=== PATIENT | female | born 1935 | race Caucasian/White ===

== ENCOUNTER 2016-09-17 15:08 | Inpatient (IN) | payer MEDICARE, OTHER ==
[~2016-09-17] VITALS: Ht 160 cm; Wt 82.4 kg
[~2016-09-17 15:08] MED LIST: ALDACTONE25 MG PO; ASPIRIN CHEWABL81 MG PO; BUMEX 1MG TABLET1 MG PO; CEFTIN500 MG PO; CHLORASEPTIC LOZ PO; CLOTRIMAZOLE10 MG TP; CORDARONE 200M200 MG PO; COUMADIN1 MG PO; EXCEDRIN EXTRA1 EACH PO; FUROSEMIDE40 MG PO; KLONOPIN TAB 00.5 MG PO; LANTUS100 UNIT/1 SQ; LASIX20 MG PO; LISINOPRIL1 GM PO; LOPRESSOR 50 MG50 MG PO; LOPRESSOR50 MG PO; METOLAZONE5 MG PO; NITROSTAT0.3 MG PO; NOVOLOG100 UNIT/1 SQ; OMEPRAZOLE20 MG PO; OXYGEN; SYNTHROID100 MCG PO; THERAGRAN-M PR1 EACH PO
[2016-09-17 18:16] LABS: HEMOGLOBIN 12.3 gm/dl (12.3-15.3); RED BLOOD COUNT 4.14 M/UL (4.00-5.10); WHITE BLOOD COUNT 15.9 K/UL (4.5-11.0)
[2016-09-18] MEDS ORDERED: COUMADIN5 MG PO (01:12)
[2016-09-18] MEDS ORDERED: NORVASC 5 MG TAB5 MG PO (01:13)
[2016-09-18] MEDS ORDERED: NITRO-TIME2.5 MG PO (01:14)
[2016-09-18] MEDS ORDERED: METOLAZONE5 MG PO (01:15)
[2016-09-18] MEDS ORDERED: K-TAB ER10 MEQ PO (01:17)
[2016-09-19 05:27] LABS: HEMOGLOBIN 10.4 gm/dl (12.3-15.3); RED BLOOD COUNT 3.57 M/UL (4.00-5.10); WHITE BLOOD COUNT 10.9 K/UL (4.5-11.0)
[2016-09-21 05:35] LABS: HEMOGLOBIN 11.2 gm/dl (12.3-15.3); RED BLOOD COUNT 3.77 M/UL (4.00-5.10); WHITE BLOOD COUNT 10.1 K/UL (4.5-11.0)
[2016-09-23 05:24] LABS: RED BLOOD COUNT 3.06 M/UL (4.00-5.10); WHITE BLOOD COUNT 13.8 K/UL (4.5-11.0)
[2016-09-25 06:01] LABS: HEMOGLOBIN 9.1 gm/dl (12.3-15.3); RED BLOOD COUNT 3.16 M/UL (4.00-5.10); WHITE BLOOD COUNT 16.5 K/UL (4.5-11.0)
[2016-09-26 03:53] LABS: HEMOGLOBIN 8.2 gm/dl (12.3-15.3); WHITE BLOOD COUNT 15.7 K/UL (4.5-11.0)
[2016-09-26 04:01] LABS: RED BLOOD COUNT 2.78 M/UL (4.00-5.10)
[2016-09-27 04:57] LABS: HEMOGLOBIN 7.9 gm/dl (12.3-15.3); RED BLOOD COUNT 2.73 M/UL (4.00-5.10); WHITE BLOOD COUNT 15.6 K/UL (4.5-11.0)
[2016-09-28 05:15] LABS: RED BLOOD COUNT 2.74 M/UL (4.00-5.10); WHITE BLOOD COUNT 13.7 K/UL (4.5-11.0)
[2016-09-29 06:32] LABS: RED BLOOD COUNT 2.75 M/UL (4.00-5.10); WHITE BLOOD COUNT 11.6 K/UL (4.5-11.0)
[2016-09-30 04:23] LABS: HEMOGLOBIN 8.1 gm/dl (12.3-15.3); RED BLOOD COUNT 2.8 M/UL (4.00-5.10); WHITE BLOOD COUNT 11.5 K/UL (4.5-11.0)
[2016-10-01 04:30] LABS: HEMOGLOBIN 8.1 gm/dl (12.3-15.3); RED BLOOD COUNT 2.78 M/UL (4.00-5.10)
[2016-10-02 04:16] LABS: HEMOGLOBIN 8.5 gm/dl (12.3-15.3); RED BLOOD COUNT 2.92 M/UL (4.00-5.10); WHITE BLOOD COUNT 13.4 K/UL (4.5-11.0)
[2016-10-03 13:07] LABS: HEMOGLOBIN 8.8 gm/dl (12.3-15.3); RED BLOOD COUNT 3.01 M/UL (4.00-5.10); WHITE BLOOD COUNT 12.1 K/UL (4.5-11.0)
[2016-10-04 04:46] LABS: RED BLOOD COUNT 3.08 M/UL (4.00-5.10); WHITE BLOOD COUNT 10.4 K/UL (4.5-11.0)
[2016-10-05 05:42] LABS: HEMOGLOBIN 9.2 gm/dl (12.3-15.3); RED BLOOD COUNT 3.15 M/UL (4.00-5.10)
[2016-10-06 05:49] LABS: HEMOGLOBIN 9.5 gm/dl (12.3-15.3); RED BLOOD COUNT 3.29 M/UL (4.00-5.10); WHITE BLOOD COUNT 10.4 K/UL (4.5-11.0)
[2016-10-07 06:22] LABS: RED BLOOD COUNT 3.11 M/UL (4.00-5.10)
[2016-10-07 06:23] LABS: WHITE BLOOD COUNT 15.7 K/UL (4.5-11.0)
[2016-10-08 05:55] LABS: HEMOGLOBIN 9.1 gm/dl (12.3-15.3); RED BLOOD COUNT 3.14 M/UL (4.00-5.10); WHITE BLOOD COUNT 12.5 K/UL (4.5-11.0)
[2016-10-09 06:31] LABS: HEMOGLOBIN 8.7 gm/dl (12.3-15.3); RED BLOOD COUNT 3.02 M/UL (4.00-5.10); WHITE BLOOD COUNT 12.4 K/UL (4.5-11.0)
== END 2016-10-09 16:06 | DRG 271 ==
LOC: ER1 15:08 → M/S 21:09 → ZEROF 21:09 → MED SURG 4 21:09 → M/S 09-18 00:52 → PROG CARE 09-25 14:53 → MED SURG 4 09-26 20:18
PROVIDERS: Emergency Medicine; Internal Medicine; Internal Medicine Cardiovascular Disease; Internal Medicine Infectious Disease; Internal Medicine Nephrology; Podiatrist Foot & Ankle Surgery; Student in an Organized Health Care Education/Training Program; ADMIT Internal Medicine
PROC: 0Y6Q0Z1 Detachment at Left 1st Toe, High, Open Approach (ICD-10-PCS; principal; 2016-09-20 15:00)
PROC: 0HBNXZZ Excision of Left Foot Skin, External Approach (ICD-10-PCS; principal; 2016-09-20 15:00)
PROC: 0YBM0ZZ Excision of Right Foot, Open Approach (ICD-10-PCS; principal; 2016-09-20 15:00)
PROC: 04CK3ZZ Extirpation of Matter from Right Femoral Artery, Percutaneous Approach (ICD-10-PCS; 2016-09-20 15:00)
PROC: 047M3ZZ Dilation of Right Popliteal Artery, Percutaneous Approach (ICD-10-PCS; 2016-09-20 15:00)
PROC: 047K3ZZ Dilation of Right Femoral Artery, Percutaneous Approach (ICD-10-PCS; 2016-09-20 15:00)
PROC: 047L3ZZ Dilation of Left Femoral Artery, Percutaneous Approach (ICD-10-PCS; 2016-09-25)
PROC: 047N3ZZ Dilation of Left Popliteal Artery, Percutaneous Approach (ICD-10-PCS; 2016-09-25)
PROC: B548ZZA Ultrasonography of Superior Vena Cava, Guidance (ICD-10-PCS; 2016-10-08)
PROC: 02HV33Z Insertion of Infusion Device into Superior Vena Cava, Percutaneous Approach (ICD-10-PCS; 2016-10-08)
DX: E11.52 Type 2 diabetes mellitus with diabetic peripheral angiopathy with gangrene (principal); I13.0 Hypertensive heart and chronic kidney disease with heart failure and stage 1 through stage 4 chronic kidney disease, or unspecified chronic kidney disease; I50.32 Chronic diastolic (congestive) heart failure; L76.34 Postprocedural seroma of skin and subcutaneous tissue following other procedure; L03.115 Cellulitis of right lower limb; E44.0 Moderate protein-calorie malnutrition; J44.1 Chronic obstructive pulmonary disease with (acute) exacerbation; J44.0 Chronic obstructive pulmonary disease with (acute) lower respiratory infection; J98.11 Atelectasis; N17.9 Acute kidney failure, unspecified; N18.4 Chronic kidney disease, stage 4 (severe); T41.45XA Adverse effect of unspecified anesthetic, initial encounter; R00.1 Bradycardia, unspecified; Y92.234 Operating room of hospital as the place of occurrence of the external cause; T45.515A Adverse effect of anticoagulants, initial encounter; J20.9 Acute bronchitis, unspecified; E11.621 Type 2 diabetes mellitus with foot ulcer; L97.521 Non-pressure chronic ulcer of other part of left foot limited to breakdown of skin; L89.312 Pressure ulcer of right buttock, stage 2; E11.649 Type 2 diabetes mellitus with hypoglycemia without coma; E11.65 Type 2 diabetes mellitus with hyperglycemia; E11.22 Type 2 diabetes mellitus with diabetic chronic kidney disease; Y92.239 Unspecified place in hospital as the place of occurrence of the external cause; E03.9 Hypothyroidism, unspecified; I25.10 Atherosclerotic heart disease of native coronary artery without angina pectoris; R06.00 Dyspnea, unspecified; Y92.230 Patient room in hospital as the place of occurrence of the external cause; Z95.1 Presence of aortocoronary bypass graft; L98.8 Other specified disorders of the skin and subcutaneous tissue; X58.XXXA Exposure to other specified factors, initial encounter; Y93.9 Activity, unspecified; Z79.02 Long term (current) use of antithrombotics/antiplatelets; Z79.4 Long term (current) use of insulin; Z79.899 Other long term (current) drug therapy; Z88.6 Allergy status to analgesic agent; Z88.8 Allergy status to other drugs, medicaments and biological substances; Z88.1 Allergy status to other antibiotic agents; I48.2 Chronic atrial fibrillation; Z79.01 Long term (current) use of anticoagulants
CPT/HCPCS: 36415; 71010; 73630; 73718; 74000; 75630; 75710; 78315; 80048; 80053; 80202; 82962; 83605; 83735; 84132; 84443; 85025; 85027; 85347; 85610; 85730; 86140; 87040; 87070; 87077; 87186; 87205; 89055; 93925; 94640; 94664; 96365; 97110; 97116; 97530; 97535; 99284; A9503; C1714; C1725; C1769; C1887; C2623; J0583; J0713; J1644; J1940; J2250; J2795; J2930; J3010; J3370; J3430; J7030; J7050; J7070; J7120; Q4133; Q9965

== ENCOUNTER 2016-10-18 18:58 | Inpatient (IN) | payer MEDICARE, OTHER ==
[~2016-10-18] VITALS: Ht 160 cm; Wt 90.7 kg
[~2016-10-18 18:58] MED LIST changes: +COUMADIN5 MG PO; +K-TAB ER10 MEQ PO; +NITRO-TIME2.5 MG PO; +NORVASC 5 MG TAB5 MG PO
[2016-10-18] MEDS ORDERED: LOPRESSOR 25 MG25 MG PO (23:33)
[2016-10-18] MEDS ORDERED: VENTOLIN/PROVE0.5 ML INH (23:36)
[2016-10-18] MEDS ORDERED: ASPIRIN EC81 MG PO (23:37)
[2016-10-18] MEDS ORDERED: DULERA 200 MCG8.8 GM INH (23:39)
[2016-10-18] MEDS ORDERED: CEFTAZIDIME1 GM IV (23:39)
[2016-10-18] MEDS ORDERED: IODINE TOP (23:42)
[2016-10-18] MEDS ORDERED: LIPITOR TAB 2020 MG PO (23:43)
[2016-10-18] MEDS ORDERED: IPRATROPIU0.2 MG/1 M INH (23:43)
[2016-10-18] MEDS ORDERED: NITROSTAT 0.40.4 MG SL (23:44)
[2016-10-18] MEDS ORDERED: BRILINTA 90 MG90 MG GT (23:45)
[2016-10-18] MEDS ORDERED: PHENERGAN 25 MG25 M1 PO (23:45)
[2016-10-18] MEDS ORDERED: VITAMIN C 500500 MG PO (23:46)
[2016-10-18] MEDS ORDERED: BRILINTA90 MG PO (23:46)
[2016-10-19 07:19] LABS: RED BLOOD COUNT 3.09 M/UL (4.00-5.10)
[2016-10-20 05:44] LABS: HEMOGLOBIN 8.7 gm/dl (12.3-15.3); RED BLOOD COUNT 3.08 M/UL (4.00-5.10)
[2016-10-20 05:49] LABS: WHITE BLOOD COUNT 5.4 K/UL (4.5-11.0)
[2016-10-21 05:35] LABS: HEMOGLOBIN 8.8 gm/dl (12.3-15.3); RED BLOOD COUNT 3.06 M/UL (4.00-5.10)
[2016-10-21 05:37] LABS: WHITE BLOOD COUNT 15.1 K/UL (4.5-11.0)
[2016-10-22 06:08] LABS: HEMOGLOBIN 8.7 gm/dl (12.3-15.3); RED BLOOD COUNT 3.04 M/UL (4.00-5.10); WHITE BLOOD COUNT 14.5 K/UL (4.5-11.0)
[2016-10-23 04:15] LABS: HEMOGLOBIN 8.8 gm/dl (12.3-15.3); RED BLOOD COUNT 3.07 M/UL (4.00-5.10)
[2016-10-24 04:58] LABS: HEMOGLOBIN 9.1 gm/dl (12.3-15.3); RED BLOOD COUNT 3.17 M/UL (4.00-5.10); WHITE BLOOD COUNT 10.7 K/UL (4.5-11.0)
[2016-10-24 17:17] LABS: URINE CREATININE 20.2 mg/dL
[2016-10-25 04:14] LABS: RED BLOOD COUNT 3.16 M/UL (4.00-5.10); WHITE BLOOD COUNT 9.9 K/UL (4.5-11.0)
[2016-10-26 03:40] LABS: HEMOGLOBIN 8.8 gm/dl (12.3-15.3); RED BLOOD COUNT 3.12 M/UL (4.00-5.10); WHITE BLOOD COUNT 9.1 K/UL (4.5-11.0)
[2016-10-27 04:23] LABS: HEMOGLOBIN 8.9 gm/dl (12.3-15.3); RED BLOOD COUNT 3.15 M/UL (4.00-5.10); WHITE BLOOD COUNT 9.9 K/UL (4.5-11.0)
[2016-10-28 04:07] LABS: HEMOGLOBIN 8.7 gm/dl (12.3-15.3); RED BLOOD COUNT 3.07 M/UL (4.00-5.10); WHITE BLOOD COUNT 10.9 K/UL (4.5-11.0)
[2016-10-29 04:23] LABS: HEMOGLOBIN 8.7 gm/dl (12.3-15.3); RED BLOOD COUNT 3.07 M/UL (4.00-5.10)
[2016-10-30 04:45] LABS: HEMOGLOBIN 8.8 gm/dl (12.3-15.3); RED BLOOD COUNT 3.14 M/UL (4.00-5.10); WHITE BLOOD COUNT 13.6 K/UL (4.5-11.0)
[2016-10-31 05:52] LABS: HEMOGLOBIN 8.5 gm/dl (12.3-15.3); RED BLOOD COUNT 3.01 M/UL (4.00-5.10); WHITE BLOOD COUNT 11.8 K/UL (4.5-11.0)
[2016-11-01 06:19] LABS: HEMOGLOBIN 8.8 gm/dl (12.3-15.3); RED BLOOD COUNT 3.12 M/UL (4.00-5.10)
[2016-11-02 05:55] LABS: HEMOGLOBIN 8.6 gm/dl (12.3-15.3); WHITE BLOOD COUNT 17.4 K/UL (4.5-11.0)
[2016-11-03 04:00] LABS: HEMOGLOBIN 8.7 gm/dl (12.3-15.3); RED BLOOD COUNT 3.09 M/UL (4.00-5.10); WHITE BLOOD COUNT 17.4 K/UL (4.5-11.0)
[2016-11-04 06:24] LABS: HEMOGLOBIN 8.7 gm/dl (12.3-15.3); RED BLOOD COUNT 3.08 M/UL (4.00-5.10); WHITE BLOOD COUNT 15.2 K/UL (4.5-11.0)
[2016-11-05 04:55] LABS: HEMOGLOBIN 7.5 gm/dl (12.3-15.3)
[2016-11-05 04:56] LABS: RED BLOOD COUNT 2.59 M/UL (4.00-5.10); WHITE BLOOD COUNT 19.1 K/UL (4.5-11.0)
[2016-11-06 06:24] LABS: HEMOGLOBIN 7.7 gm/dl (12.3-15.3); RED BLOOD COUNT 2.74 M/UL (4.00-5.10); WHITE BLOOD COUNT 18.7 K/UL (4.5-11.0)
[2016-11-07 06:40] LABS: HEMOGLOBIN 7.3 gm/dl (12.3-15.3); RED BLOOD COUNT 2.56 M/UL (4.00-5.10)
== END 2016-11-07 17:18 | DRG 239 ==
LOC: CCU 22:57 → MED SURG 4 22:57 → M/S 22:57 → CCU 10-22 13:08 → MED SURG 4 10-26 13:52
PROVIDERS: Hospitalist; Internal Medicine; Internal Medicine Nephrology; Orthopaedic Surgery; ADMIT Emergency Medicine
PROC: 0Y6H0Z2 Detachment at Right Lower Leg, Mid, Open Approach (ICD-10-PCS; principal; 2016-11-04 18:00)
PROC: 30233N1 Transfusion of Nonautologous Red Blood Cells into Peripheral Vein, Percutaneous Approach (ICD-10-PCS; 2016-11-07)
DX: I50.23 Acute on chronic systolic (congestive) heart failure (principal); J96.01 Acute respiratory failure with hypoxia; J96.02 Acute respiratory failure with hypercapnia; A41.9 Sepsis, unspecified organism; E11.52 Type 2 diabetes mellitus with diabetic peripheral angiopathy with gangrene; N18.4 Chronic kidney disease, stage 4 (severe); M86.671 Other chronic osteomyelitis, right ankle and foot; E87.3 Alkalosis; J98.11 Atelectasis; I13.2 Hypertensive heart and chronic kidney disease with heart failure and with stage 5 chronic kidney disease, or end stage renal disease; N18.5 Chronic kidney disease, stage 5; D62 Acute posthemorrhagic anemia; G72.81 Critical illness myopathy; I73.9 Peripheral vascular disease, unspecified; R04.0 Epistaxis; I50.32 Chronic diastolic (congestive) heart failure; E11.65 Type 2 diabetes mellitus with hyperglycemia; J44.9 Chronic obstructive pulmonary disease, unspecified; I48.91 Unspecified atrial fibrillation; I25.119 Atherosclerotic heart disease of native coronary artery with unspecified angina pectoris; D64.9 Anemia, unspecified; Z95.1 Presence of aortocoronary bypass graft; Z95.820 Peripheral vascular angioplasty status with implants and grafts; E11.22 Type 2 diabetes mellitus with diabetic chronic kidney disease; E78.5 Hyperlipidemia, unspecified; E87.5 Hyperkalemia; E03.9 Hypothyroidism, unspecified; T38.0X5A Adverse effect of glucocorticoids and synthetic analogues, initial encounter; Y92.009 Unspecified place in unspecified non-institutional (private) residence as the place of occurrence of the external cause; I27.2 Other secondary pulmonary hypertension; I34.0 Nonrheumatic mitral (valve) insufficiency; F41.9 Anxiety disorder, unspecified; Z88.0 Allergy status to penicillin; Z88.8 Allergy status to other drugs, medicaments and biological substances; Z79.01 Long term (current) use of anticoagulants; Z79.82 Long term (current) use of aspirin; Z79.4 Long term (current) use of insulin; Z79.02 Long term (current) use of antithrombotics/antiplatelets; Z79.899 Other long term (current) drug therapy; Z28.21 Immunization not carried out because of patient refusal; Z87.891 Personal history of nicotine dependence; Z82.49 Family history of ischemic heart disease and other diseases of the circulatory system; Z80.3 Family history of malignant neoplasm of breast; I35.0 Nonrheumatic aortic (valve) stenosis; K59.00 Constipation, unspecified
CPT/HCPCS: 36415; 36600; 71010; 71020; 71250; 80048; 80053; 80202; 82272; 82570; 82575; 82803; 82947; 82962; 83735; 83880; 84132; 84443; 85025; 85027; 85610; 85730; 86850; 86900; 86901; 86920; 87040; 87070; 87205; 94640; 94660; 94664; 94760; 97110; 97116; 97530; J0690; J0713; J1120; J1205; J1650; J1940; J2250; J2270; J2920; J2930; J3010; J3370; J7030; J7040; J7050; J7070; J7120; P9016